=== PATIENT | female | born 1990 | race Caucasian/White ===

== ENCOUNTER 2016-10-18 23:37 | Emergency (ER) | payer SELFPAY ==
[~2016-10-18] VITALS: Ht 170.2 cm; Wt 70.8 kg
[2016-10-19 00:18] LABS: BASOPHIL % 0.5 % (0-2)
[2016-10-19 00:21] LABS: PLATELET COUNT 464 x10^3mcL (130-400); RED CELL DISTRIBUTION WIDTH 18.4 % (11.5-14.5)
[2016-10-19 00:28] LABS: CARBON DIOXIDE 27.5 mmol/L (21-32); CHLORIDE SERUM 102 mmol/L (98-107); CREATININE SERUM 1.2 mg/dL (0.6-1.0); GFR1 59 mL/min; GLUCOSE SERUM 105 mg/dL (74-106); SODIUM SERUM 139 mmol/L (136-145)
[2016-10-19 00:32] LABS: ALBUMIN 3.9 g/dL (3.4-5.0); ALKALINE PHOSPHATASE 84 U/L (46-116); ALT/SGPT 28 U/L (14-59); AST/SGOT 25 U/L (15-37); BILIRUBIN TOTAL 0.2 mg/dL (0.20-1.00); CHOLESTEROL 156 mg/dL (<200); LACTIC DEHYDROGENASE (LDH) 200 U/L (100-190); PHOSPHOROUS 4.8 mg/dL (2.5-4.9); TOTAL PROTEIN, SERUM 8.1 g/dL (6.4-8.2); URIC ACID 5.6 mg/dL (2.6-6.0)
[2016-10-19 02:09] LABS: AMPHETAMINE QUAL UR POSITIVE (NEG <=1000)
[2016-10-19 14:34] VITALS: BP 119/73
== END 2016-10-19 14:34 | disposition home or self-care (01) ==
LOC: ED 23:37
PROVIDERS: Emergency Medicine
DX: F15.20 Other stimulant dependence, uncomplicated (principal); D50.9 Iron deficiency anemia, unspecified
CPT/HCPCS: 36415; G0480; J1630; J2060; Q0092